=== PATIENT | male | born 1945 | race Caucasian/White ===

== ENCOUNTER 2016-10-13 15:04 | Outpatient (RCR) | payer MEDICARE, OTHER | END 2016-10-13 16:00 | disposition home or self-care (01) | LOC: WOUNDCARE 15:04 | PROVIDERS: ATTEND Surgery | DX: E11.621 Type 2 diabetes mellitus with foot ulcer (principal); E11.42 Type 2 diabetes mellitus with diabetic polyneuropathy; L97.511 Non-pressure chronic ulcer of other part of right foot limited to breakdown of skin; L97.512 Non-pressure chronic ulcer of other part of right foot with fat layer exposed; I70.235 Atherosclerosis of native arteries of right leg with ulceration of other part of foot | CPT/HCPCS: 11042; 97597 ==

== ENCOUNTER → 2016-10-20 | Outpatient (CLI) | payer MEDICARE, OTHER | LOC: WOUNDCARE 15:01 | PROVIDERS: ATTEND Surgery | DX: E11.621 Type 2 diabetes mellitus with foot ulcer (principal); E11.42 Type 2 diabetes mellitus with diabetic polyneuropathy; L97.512 Non-pressure chronic ulcer of other part of right foot with fat layer exposed | CPT/HCPCS: 11042 ==

== ENCOUNTER → 2016-10-31 | Outpatient (CLI) | payer MEDICARE, OTHER | LOC: WOUNDCARE 13:15 | PROVIDERS: ATTEND Surgery | DX: E11.621 Type 2 diabetes mellitus with foot ulcer (principal); L97.512 Non-pressure chronic ulcer of other part of right foot with fat layer exposed; E11.42 Type 2 diabetes mellitus with diabetic polyneuropathy | CPT/HCPCS: 11042; 87070; 87075; 87077; 87186; 87205 ==

== ENCOUNTER → 2016-11-07 | Outpatient (CLI) | payer MEDICARE, OTHER | LOC: WOUNDCARE 13:30 | PROVIDERS: ATTEND Surgery | DX: E11.621 Type 2 diabetes mellitus with foot ulcer (principal); L97.512 Non-pressure chronic ulcer of other part of right foot with fat layer exposed; E11.42 Type 2 diabetes mellitus with diabetic polyneuropathy | CPT/HCPCS: 11042 ==

== ENCOUNTER → 2016-11-12 | Outpatient (CLI) | payer MEDICARE, OTHER | LOC: WOUNDCARE 13:56 | PROVIDERS: ATTEND Surgery | DX: L97.512 Non-pressure chronic ulcer of other part of right foot with fat layer exposed (principal); E11.621 Type 2 diabetes mellitus with foot ulcer; E11.42 Type 2 diabetes mellitus with diabetic polyneuropathy | CPT/HCPCS: 11042 ==

== ENCOUNTER → 2016-11-14 | Outpatient (CLI) | payer MEDICARE, OTHER | LOC: WOUNDCARE 13:31 | PROVIDERS: ATTEND Surgery | DX: E11.621 Type 2 diabetes mellitus with foot ulcer (principal); E11.42 Type 2 diabetes mellitus with diabetic polyneuropathy; L97.512 Non-pressure chronic ulcer of other part of right foot with fat layer exposed | CPT/HCPCS: 29445 ==

== ENCOUNTER → 2016-11-19 | Outpatient (CLI) | payer MEDICARE, OTHER | LOC: WOUNDCARE 09:09 | PROVIDERS: ATTEND Surgery | DX: E11.621 Type 2 diabetes mellitus with foot ulcer (principal); L97.512 Non-pressure chronic ulcer of other part of right foot with fat layer exposed; L97.411 Non-pressure chronic ulcer of right heel and midfoot limited to breakdown of skin; E11.42 Type 2 diabetes mellitus with diabetic polyneuropathy | CPT/HCPCS: 11042; 97597 ==

== ENCOUNTER → 2016-11-26 | Outpatient (CLI) | payer MEDICARE, OTHER | LOC: WOUNDCARE 14:03 | PROVIDERS: ATTEND Surgery | DX: E11.621 Type 2 diabetes mellitus with foot ulcer (principal); E11.42 Type 2 diabetes mellitus with diabetic polyneuropathy; L97.512 Non-pressure chronic ulcer of other part of right foot with fat layer exposed; L97.411 Non-pressure chronic ulcer of right heel and midfoot limited to breakdown of skin | CPT/HCPCS: 11042; 97597 ==

== ENCOUNTER → 2016-12-03 | Outpatient (CLI) | payer MEDICARE, OTHER ==
[2016-12-03 15:24] LABS: BASOPHILS % (AUTO) 0 % (0-10); EOSINOPHILS # (AUTO) 0.2 10^3/uL (0.0-0.3); EOSINOPHILS % (AUTO) 2 % (0-10); LYMPHOCYTES # (AUTO) 2.9 X 10^3 (1.0-4.0); LYMPHOCYTES % (AUTO) 25 % (12-44); MEAN CORPUSCULAR HEMOGLOBIN 29 PG (25-34); MEAN CORPUSCULAR HGB CONC 34 G/DL (32-36); MEAN CORPUSCULAR VOLUME 88 FL (80-99); MEAN PLATELET VOLUME 10.4 FL (7.4-10.4); MONOCYTES % (AUTO) 9 % (0-12); NEUTROPHILS # (AUTO) 7.4 X 10^3 (1.8-7.8); NEUTROPHILS % (AUTO) 64 % (42-75); PLATELET COUNT 217 10^3/uL (130-400); RED BLOOD COUNT 4.42 10^6/uL (4.35-5.85); RED CELL DISTRIBUTION WIDTH 14.7 % (10.0-14.5); WHITE BLOOD COUNT 11.6 10^3/uL (4.3-11.0)
[2016-12-03 15:38] LABS: ALBUMIN 4.3 GM/DL (3.2-4.5); BILIRUBIN,TOTAL 0.5 MG/DL (0.1-1.0); CALCIUM 10.2 MG/DL (8.5-10.1); CREATININE SERUM 1.51 MG/DL (0.60-1.30); POTASSIUM 4.6 MMOL/L (3.6-5.0); TOTAL PROTEIN 7.6 GM/DL (6.4-8.2)
== END ==
LOC: LAB 14:58
PROVIDERS: ATTEND Surgery
DX: L97.411 Non-pressure chronic ulcer of right heel and midfoot limited to breakdown of skin; E11.621 Type 2 diabetes mellitus with foot ulcer; E11.42 Type 2 diabetes mellitus with diabetic polyneuropathy; L97.512 Non-pressure chronic ulcer of other part of right foot with fat layer exposed
CPT/HCPCS: 36415; 80053; 83036; 85025

== ENCOUNTER → 2016-12-03 | Outpatient (CLI) | payer MEDICARE, OTHER | LOC: WOUNDCARE 13:58 | PROVIDERS: ATTEND Surgery | DX: E11.621 Type 2 diabetes mellitus with foot ulcer (principal); L97.512 Non-pressure chronic ulcer of other part of right foot with fat layer exposed; L97.411 Non-pressure chronic ulcer of right heel and midfoot limited to breakdown of skin; E11.42 Type 2 diabetes mellitus with diabetic polyneuropathy | CPT/HCPCS: 11042; 87070; 87075; 87077; 87186; 87205 ==

== ENCOUNTER → 2016-12-10 | Outpatient (CLI) | payer MEDICARE, OTHER | LOC: WOUNDCARE 08:07 | PROVIDERS: ATTEND Surgery | DX: E11.621 Type 2 diabetes mellitus with foot ulcer (principal); L97.512 Non-pressure chronic ulcer of other part of right foot with fat layer exposed; L97.411 Non-pressure chronic ulcer of right heel and midfoot limited to breakdown of skin; E11.42 Type 2 diabetes mellitus with diabetic polyneuropathy | CPT/HCPCS: 11042 ==

== ENCOUNTER → 2016-12-10 | Outpatient (CLI) | payer MEDICARE, OTHER ==
--- NOTE | 2016-12-10 13:08 | Diagnostic Imaging Report ---
EXAMINATION: Three views of the right foot. INDICATION: Nonpressure ulcer. 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 There is no acute bone erosion or periosteal reaction identified to suggest osteomyelitis. No soft tissue air is seen. Degenerative hyperostosis is noted at the intertarsal joints and at the tarsal/metatarsal joint levels with a possible post traumatic component from an old injury. Calcaneal spurs are also seen. No acute fracture or dislocation. IMPRESSION: No acute process. Dictated by: Dictated on workstation # [id number]
== END ==
LOC: RAD 09:41
PROVIDERS: ATTEND Surgery
DX: L97.512 Non-pressure chronic ulcer of other part of right foot with fat layer exposed (principal); E11.621 Type 2 diabetes mellitus with foot ulcer; E11.42 Type 2 diabetes mellitus with diabetic polyneuropathy; L97.411 Non-pressure chronic ulcer of right heel and midfoot limited to breakdown of skin
CPT/HCPCS: 73630

== ENCOUNTER → 2016-12-17 | Outpatient (CLI) | payer MEDICARE, OTHER | LOC: WOUNDCARE 13:57 | PROVIDERS: ATTEND Surgery | DX: E11.621 Type 2 diabetes mellitus with foot ulcer (principal); L97.512 Non-pressure chronic ulcer of other part of right foot with fat layer exposed; E11.42 Type 2 diabetes mellitus with diabetic polyneuropathy | CPT/HCPCS: 11042 ==

== ENCOUNTER → 2016-12-25 | Outpatient (CLI) | payer MEDICARE, OTHER | LOC: WOUNDCARE 15:03 | PROVIDERS: ATTEND Nurse Practitioner | DX: E11.621 Type 2 diabetes mellitus with foot ulcer (principal); E11.42 Type 2 diabetes mellitus with diabetic polyneuropathy; L97.512 Non-pressure chronic ulcer of other part of right foot with fat layer exposed | CPT/HCPCS: 15275 ==

== ENCOUNTER → 2016-12-31 | Outpatient (CLI) | payer MEDICARE, OTHER | LOC: WOUNDCARE 14:07 | PROVIDERS: ATTEND Surgery | DX: E11.621 Type 2 diabetes mellitus with foot ulcer (principal); L97.512 Non-pressure chronic ulcer of other part of right foot with fat layer exposed; E11.42 Type 2 diabetes mellitus with diabetic polyneuropathy | CPT/HCPCS: 15275 ==

== ENCOUNTER → 2017-01-07 | Outpatient (CLI) | payer MEDICARE, OTHER | LOC: WOUNDCARE 10:39 | PROVIDERS: ATTEND Surgery | DX: E11.621 Type 2 diabetes mellitus with foot ulcer (principal); E11.42 Type 2 diabetes mellitus with diabetic polyneuropathy; L97.512 Non-pressure chronic ulcer of other part of right foot with fat layer exposed | CPT/HCPCS: 15275 ==

== ENCOUNTER → 2017-01-14 | Outpatient (CLI) | payer MEDICARE, OTHER | LOC: WOUNDCARE 13:50 | PROVIDERS: ATTEND Surgery | DX: E11.621 Type 2 diabetes mellitus with foot ulcer (principal); L97.512 Non-pressure chronic ulcer of other part of right foot with fat layer exposed; E11.42 Type 2 diabetes mellitus with diabetic polyneuropathy | CPT/HCPCS: 11042 ==

== ENCOUNTER → 2017-01-21 | Outpatient (CLI) | payer MEDICARE, OTHER | LOC: WOUNDCARE 13:42 | PROVIDERS: ATTEND Surgery | DX: E11.621 Type 2 diabetes mellitus with foot ulcer (principal); E11.42 Type 2 diabetes mellitus with diabetic polyneuropathy; L97.512 Non-pressure chronic ulcer of other part of right foot with fat layer exposed | CPT/HCPCS: 11042 ==

== ENCOUNTER → 2017-01-28 | Outpatient (CLI) | payer MEDICARE, OTHER | LOC: WOUNDCARE 13:47 | PROVIDERS: ATTEND Surgery | DX: L97.512 Non-pressure chronic ulcer of other part of right foot with fat layer exposed (principal); E11.621 Type 2 diabetes mellitus with foot ulcer; E11.42 Type 2 diabetes mellitus with diabetic polyneuropathy | CPT/HCPCS: 11042 ==

== ENCOUNTER → 2017-02-04 | Outpatient (CLI) | payer MEDICARE, OTHER | LOC: WOUNDCARE 08:22 | PROVIDERS: ATTEND Surgery | DX: E11.621 Type 2 diabetes mellitus with foot ulcer (principal); L97.512 Non-pressure chronic ulcer of other part of right foot with fat layer exposed; E11.42 Type 2 diabetes mellitus with diabetic polyneuropathy | CPT/HCPCS: 11042; 87070; 87075; 87205 ==

== ENCOUNTER → 2017-02-11 | Outpatient (CLI) | payer MEDICARE, OTHER | LOC: WOUNDCARE 08:22 | PROVIDERS: ATTEND Surgery | DX: E11.621 Type 2 diabetes mellitus with foot ulcer (principal); L97.512 Non-pressure chronic ulcer of other part of right foot with fat layer exposed; E11.42 Type 2 diabetes mellitus with diabetic polyneuropathy | CPT/HCPCS: 11042 ==

== ENCOUNTER → 2017-02-18 | Outpatient (CLI) | payer MEDICARE, OTHER | LOC: WOUNDCARE 08:33 | PROVIDERS: ATTEND Surgery | DX: E11.621 Type 2 diabetes mellitus with foot ulcer (principal); L97.512 Non-pressure chronic ulcer of other part of right foot with fat layer exposed; E11.42 Type 2 diabetes mellitus with diabetic polyneuropathy | CPT/HCPCS: 11042 ==

== ENCOUNTER → 2017-02-25 | Outpatient (CLI) | payer MEDICARE, OTHER | LOC: WOUNDCARE 08:41 | PROVIDERS: ATTEND Surgery | DX: E11.621 Type 2 diabetes mellitus with foot ulcer (principal); L97.512 Non-pressure chronic ulcer of other part of right foot with fat layer exposed; E11.42 Type 2 diabetes mellitus with diabetic polyneuropathy | CPT/HCPCS: 11042 ==

== ENCOUNTER → 2017-03-02 | Outpatient (CLI) | payer MEDICARE, OTHER | LOC: WOUNDCARE 12:46 | PROVIDERS: ATTEND Surgery | DX: E11.621 Type 2 diabetes mellitus with foot ulcer (principal); L97.512 Non-pressure chronic ulcer of other part of right foot with fat layer exposed; L97.511 Non-pressure chronic ulcer of other part of right foot limited to breakdown of skin; E11.42 Type 2 diabetes mellitus with diabetic polyneuropathy | CPT/HCPCS: 11042 ==

== ENCOUNTER → 2017-03-11 | Outpatient (CLI) | payer MEDICARE, OTHER | LOC: WOUNDCARE 08:40 | PROVIDERS: ATTEND Surgery | DX: E11.621 Type 2 diabetes mellitus with foot ulcer (principal); L97.511 Non-pressure chronic ulcer of other part of right foot limited to breakdown of skin; L97.512 Non-pressure chronic ulcer of other part of right foot with fat layer exposed; E11.42 Type 2 diabetes mellitus with diabetic polyneuropathy | CPT/HCPCS: 11042; 97597 ==

== ENCOUNTER → 2017-03-18 | Outpatient (CLI) | payer MEDICARE, OTHER | LOC: WOUNDCARE 08:18 | PROVIDERS: ATTEND Surgery | DX: E11.621 Type 2 diabetes mellitus with foot ulcer (principal); L97.511 Non-pressure chronic ulcer of other part of right foot limited to breakdown of skin; L97.512 Non-pressure chronic ulcer of other part of right foot with fat layer exposed; E11.42 Type 2 diabetes mellitus with diabetic polyneuropathy | CPT/HCPCS: 11042 ==

== ENCOUNTER → 2017-03-20 | Outpatient (CLI) | payer MEDICARE, OTHER | LOC: WOUNDCARE 12:03 | PROVIDERS: ATTEND Surgery | DX: E11.621 Type 2 diabetes mellitus with foot ulcer (principal); L97.511 Non-pressure chronic ulcer of other part of right foot limited to breakdown of skin; L97.512 Non-pressure chronic ulcer of other part of right foot with fat layer exposed; E11.42 Type 2 diabetes mellitus with diabetic polyneuropathy | CPT/HCPCS: 29445 ==

== ENCOUNTER → 2017-03-25 | Outpatient (CLI) | payer MEDICARE, OTHER | LOC: WOUNDCARE 08:08 | PROVIDERS: ATTEND Surgery | DX: E11.621 Type 2 diabetes mellitus with foot ulcer (principal); L97.512 Non-pressure chronic ulcer of other part of right foot with fat layer exposed; E11.42 Type 2 diabetes mellitus with diabetic polyneuropathy | CPT/HCPCS: 29445 ==

== ENCOUNTER → 2017-03-30 | Outpatient (CLI) | payer MEDICARE, OTHER | LOC: WOUNDCARE 08:32 | PROVIDERS: ATTEND Surgery | DX: E11.621 Type 2 diabetes mellitus with foot ulcer (principal); L97.512 Non-pressure chronic ulcer of other part of right foot with fat layer exposed | CPT/HCPCS: 99212 ==

== ENCOUNTER → 2017-04-13 | Outpatient (CLI) | payer MEDICARE, OTHER | LOC: WOUNDCARE 13:24 | PROVIDERS: ATTEND Surgery | DX: E11.621 Type 2 diabetes mellitus with foot ulcer (principal); L97.512 Non-pressure chronic ulcer of other part of right foot with fat layer exposed; E11.42 Type 2 diabetes mellitus with diabetic polyneuropathy | CPT/HCPCS: 11042 ==

== ENCOUNTER → 2017-04-20 | Outpatient (CLI) | payer MEDICARE, OTHER | LOC: WOUNDCARE 12:28 | PROVIDERS: ATTEND Surgery | DX: E11.621 Type 2 diabetes mellitus with foot ulcer (principal); L97.512 Non-pressure chronic ulcer of other part of right foot with fat layer exposed; E11.42 Type 2 diabetes mellitus with diabetic polyneuropathy | CPT/HCPCS: 99212 ==

== ENCOUNTER → 2017-04-30 | Outpatient (CLI) | payer MEDICARE, OTHER ==
--- NOTE | 2017-04-30 12:21 | Diagnostic Imaging Report ---
INDICATION: Shortness of breath. COMPARISON: None. FINDINGS: Two views of the chest are obtained. Heart size is normal. The pulmonary vessels appear unremarkable. There is a pacer device in the left chest. There is no pneumothorax, mediastinal widening, or pleural fluid. Lungs are clear. There are degenerative changes in the spine. IMPRESSION: No acute abnormality is demonstrated. Dictated by: Dictated on workstation # [id number]
== END ==
LOC: RAD 11:57
PROVIDERS: ATTEND Internal Medicine Critical Care Medicine
DX: J44.9 Chronic obstructive pulmonary disease, unspecified (principal); G47.33 Obstructive sleep apnea (adult) (pediatric); J30.2 Other seasonal allergic rhinitis; I25.10 Atherosclerotic heart disease of native coronary artery without angina pectoris
CPT/HCPCS: 71046

== ENCOUNTER → 2017-05-06 | Outpatient (CLI) | payer MEDICARE, OTHER ==
[~2017-05-06] MED LIST: RT-ALBUTEROL SULF 2.5 MG/3 ML PRE-MIX VIAL INH ONE
== END ==
LOC: RT 16:39
PROVIDERS: ATTEND Internal Medicine Critical Care Medicine
DX: J44.9 Chronic obstructive pulmonary disease, unspecified (principal)
CPT/HCPCS: 94060; 94726; 94729

== ENCOUNTER 2017-05-11 21:08 | Outpatient (CLI) | payer MEDICARE, OTHER | END 2017-05-12 06:20 | disposition home or self-care (01) | LOC: SLEEP 21:08 | PROVIDERS: ATTEND Internal Medicine Critical Care Medicine | DX: G47.33 Obstructive sleep apnea (adult) (pediatric) (principal); R06.02 Shortness of breath; J30.2 Other seasonal allergic rhinitis; J44.9 Chronic obstructive pulmonary disease, unspecified; I25.10 Atherosclerotic heart disease of native coronary artery without angina pectoris | CPT/HCPCS: 95811 ==

== ENCOUNTER → 2017-05-15 | Outpatient (CLI) | payer MEDICARE, OTHER | LOC: WOUNDCARE 08:37 | PROVIDERS: ATTEND Surgery | DX: E11.621 Type 2 diabetes mellitus with foot ulcer (principal); L97.512 Non-pressure chronic ulcer of other part of right foot with fat layer exposed; E11.42 Type 2 diabetes mellitus with diabetic polyneuropathy | CPT/HCPCS: 87070; 87075; 87186; 87205 ==

== ENCOUNTER → 2017-05-18 | Outpatient (CLI) | payer MEDICARE, OTHER | LOC: WOUNDCARE 11:31 | PROVIDERS: ATTEND Surgery | DX: E11.621 Type 2 diabetes mellitus with foot ulcer (principal); L97.512 Non-pressure chronic ulcer of other part of right foot with fat layer exposed; E11.42 Type 2 diabetes mellitus with diabetic polyneuropathy | CPT/HCPCS: 29445 ==

== ENCOUNTER → 2017-05-20 | Outpatient (CLI) | payer MEDICARE, OTHER | LOC: WOUNDCARE 13:37 | PROVIDERS: ATTEND Surgery | DX: L97.512 Non-pressure chronic ulcer of other part of right foot with fat layer exposed (principal); E11.621 Type 2 diabetes mellitus with foot ulcer; E11.42 Type 2 diabetes mellitus with diabetic polyneuropathy | CPT/HCPCS: 29445 ==

== ENCOUNTER → 2017-05-27 | Outpatient (CLI) | payer MEDICARE, OTHER | LOC: WOUNDCARE 12:56 | PROVIDERS: ATTEND Surgery | DX: E11.621 Type 2 diabetes mellitus with foot ulcer (principal); L97.512 Non-pressure chronic ulcer of other part of right foot with fat layer exposed; E11.42 Type 2 diabetes mellitus with diabetic polyneuropathy | CPT/HCPCS: 29445 ==

== ENCOUNTER → 2017-06-03 | Outpatient (CLI) | payer MEDICARE, OTHER | LOC: WOUNDCARE 11:39 | PROVIDERS: ATTEND Surgery | DX: E11.621 Type 2 diabetes mellitus with foot ulcer (principal); L97.512 Non-pressure chronic ulcer of other part of right foot with fat layer exposed; E11.42 Type 2 diabetes mellitus with diabetic polyneuropathy | CPT/HCPCS: 99212 ==

== ENCOUNTER 2018-04-07 20:56 | Outpatient (CLI) | payer MEDICARE, OTHER | END 2018-04-08 06:40 | disposition home or self-care (01) | LOC: SLEEP 20:56 | PROVIDERS: ATTEND Nurse Practitioner Family | DX: G47.33 Obstructive sleep apnea (adult) (pediatric) (principal); R53.83 Other fatigue; Z78.9 Other specified health status | CPT/HCPCS: 95810 ==

== ENCOUNTER → 2018-11-17 | Outpatient (CLI) | payer MEDICARE, OTHER ==
[2018-11-17 15:20] LABS: CREATININE SERUM 1.25 MG/DL (0.60-1.30)
--- NOTE | 2018-11-17 16:50 | Diagnostic Imaging Report ---
PROCEDURE: CT chest with contrast only. TECHNIQUE: Multiple contiguous axial images were obtained through the chest after administration of intravenous contrast. Auto Exposure Controls were utilized during the CT exam to meet ALARA standards for radiation dose reduction. INDICATION: COPD COMPARISON: Radiographs dated April 30, 2017. FINDINGS: Pacer device is present with the battery pack overlying the left chest. An enlarged right paratracheal lymph node is present measuring 1.8 x 1.5 cm. No additional adenopathy within the chest. Scattered vascular calcifications. No aneurysmal dilatation of the thoracic aorta. The heart is within normal limits in size. No pericardial effusion. No pleural effusion. Tiny hiatal hernia. No pneumothorax. Mild patchy reticular and groundglass opacities are identified within the anterior aspect of the left upper lobe, posterior aspect of the right lower lobe, and inferior aspect of the right middle lobe. The airway is patent. Cholecystectomy. Evidence of prior surgery associated with the anterior abdominal wall with multiple surgical clips in place. Aortic stent graft is noted within the partially visualized abdominal aorta. The visualized upper abdomen is otherwise unremarkable. Scattered osseous degenerative changes without acute osseous abnormality. IMPRESSION: Patchy reticular and groundglass opacities within the lungs bilaterally, greatest within the anterior left upper lobe. Findings are favored to be related to pneumonitis. Early interstitial lung disease would appear similar. Enlarged right paratracheal lymph node, of uncertain etiology. Recommend comparison to prior imaging if available. Though this may be reactive, infiltrative process not excluded. Additional postsurgical and chronic findings as described above. Dictated by: Dictated on workstation # [id number]
== END ==
LOC: RT 14:49
PROVIDERS: ATTEND Nurse Practitioner Family
DX: I70.8 Atherosclerosis of other arteries (principal); J84.9 Interstitial pulmonary disease, unspecified; R59.0 Localized enlarged lymph nodes; Z90.49 Acquired absence of other specified parts of digestive tract; Z95.0 Presence of cardiac pacemaker; J44.9 Chronic obstructive pulmonary disease, unspecified; G47.33 Obstructive sleep apnea (adult) (pediatric); J30.9 Allergic rhinitis, unspecified
CPT/HCPCS: 36415; 71260; 82565; 84520; 94060; 94726; 94729

== ENCOUNTER 2018-11-22 06:01 | Outpatient (CLI) | payer MEDICARE, OTHER ==
[~2018-11-22] VITALS: Ht 185.4 cm; Wt 92.1 kg
[2018-11-22] MEDS ORDERED: OMEG1CAP PO (11:59)
[2018-11-22] MEDS ORDERED: CLOP75TA69 PO (12:49)
[2018-11-22] MEDS ORDERED: LOSA25TA41 PO (12:49)
[2018-11-22] MEDS ORDERED: CARV6.25 PO (12:49)
[2018-11-22] MEDS ORDERED: MAGN400T7 PO (12:49)
[2018-11-22] MEDS ORDERED: FURO20TA4 PO (12:49)
[2018-11-22] MEDS ORDERED: DULO30CA3 PO (12:49)
[2018-11-22] MEDS ORDERED: METF-397 PO (12:49)
[2018-11-22] MEDS ORDERED: GLIM4TAB PO (12:49)
[2018-11-22] MEDS ORDERED: DEXL30CA2 PO (12:49)
[2018-11-22] MEDS ORDERED: ASPI-586 PO (12:49)
[2018-11-22] MEDS ORDERED: FINA5TAB6 PO (12:49)
[2018-11-22] MEDS ORDERED: DULA1.5P2 SQ (12:49)
[2018-11-22] MEDS ORDERED: AMOX-358 PO (12:49)
[2018-11-24] MEDS ORDERED: CETI10TA20 PO (08:24)
== END 2018-11-22 12:50 | disposition home or self-care (01) ==
LOC: PREOP 06:01
PROVIDERS: ATTEND Internal Medicine Critical Care Medicine
DX: Z01.818 Encounter for other preprocedural examination (principal)

== ENCOUNTER 2018-12-22 10:38 | Outpatient (RCR) | payer MEDICARE, OTHER ==
[~2018-12-22 10:38] MED LIST changes: +AMOX-358 PO; +ASPI-586 PO; +CARV6.25 PO; +CETI10TA20 PO; +CLOP75TA69 PO; +DEXL30CA2 PO; +DULA1.5P2 SQ; +DULO30CA3 PO; +FINA5TAB6 PO; +FURO20TA4 PO; +GLIM4TAB PO; +LOSA25TA41 PO; +MAGN400T7 PO; +METF-397 PO; +OMEG1CAP PO; -RT-ALBUTEROL SULF 2.5 MG/3 ML PRE-MIX VIAL INH ONE
== END 2019-03-22 | disposition home or self-care (01) ==
LOC: PULM 10:38
PROVIDERS: ATTEND Nurse Practitioner Family
DX: J98.4 Other disorders of lung (principal)
CPT/HCPCS: 99211

== ENCOUNTER → 2019-01-04 | Outpatient (CLI) | payer MEDICARE, OTHER ==
[~2019-01-04] MED LIST changes: +CATHETER FLUSH 10 ML SYR IV PRN; +HOLD METFORMIN - RECEIVED CONTRAST 20 ML VIAL IV SCH; +IOHEXOL 350 MG/ML 100 ML (OMNIPAQUE 350) VIAL IV ONE; +NS 100 ML (IVPB) BAG IV ONE
[2019-01-04 14:02] LABS: CREATININE SERUM 1.33 MG/DL (0.60-1.30)
--- NOTE | 2019-01-04 16:10 | Diagnostic Imaging Report ---
PROCEDURE: CT chest with contrast only. TECHNIQUE: Multiple contiguous axial images were obtained through the chest after administration of intravenous contrast. Auto Exposure Controls were utilized during the CT exam to meet ALARA standards for radiation dose reduction. INDICATION: Hemoptysis and fatigue. COMPARISON: Correlation is made with prior CT chest from 11/17/2018. FINDINGS: Left chest wall cardiac pacemaker is again noted. No axillary lymphadenopathy is seen. A prominent lymph node in the right paratracheal region persists measuring approximately 2.7 x 1.6 cm. This measured approximately 2.0 x 1.3 cm on prior exam when measured by the same technique. Additional slightly smaller lymph nodes in the mediastinum are noted. Jeanine are unremarkable. There are coronary arterial calcifications. No pericardial fluid is seen. Patient has developed small bilateral pleural effusions. Patchy groundglass and interstitial changes in bilateral upper lobes are again noted and appear to be slightly more prominent on today's exam. Lower lung vasquez are unremarkable. No discrete mass is detected. Upper abdomen does show abdominal aortic aneurysm, treated with a stent graft. IMPRESSION: Slight worsening of patchy bilateral groundglass and interstitial infiltrates when compared with study one month earlier. In addition, previously noted enlarged lymph nodes in the right paratracheal region show some increase in size and again may be reactive. Continued follow-up is recommended. Patient has developed small bilateral pleural effusions. Dictated by: Dictated on workstation # [id number]
== END ==
LOC: RAD 13:23
PROVIDERS: ATTEND Nurse Practitioner Family
DX: J44.9 Chronic obstructive pulmonary disease, unspecified (principal); J90 Pleural effusion, not elsewhere classified; R59.0 Localized enlarged lymph nodes; Z95.0 Presence of cardiac pacemaker
CPT/HCPCS: 36415; 71260; 82565; 84520

== ENCOUNTER → 2019-03-22 | Outpatient (CLI) | payer MEDICARE, OTHER ==
[~2019-03-22] MED LIST changes: -CATHETER FLUSH 10 ML SYR IV PRN; -HOLD METFORMIN - RECEIVED CONTRAST 20 ML VIAL IV SCH; -IOHEXOL 350 MG/ML 100 ML (OMNIPAQUE 350) VIAL IV ONE; -NS 100 ML (IVPB) BAG IV ONE
[2019-03-22 15:47] LABS: BASOPHILS % (AUTO) 0 % (0-10); EOSINOPHILS # (AUTO) 0.1 10^3/uL (0.0-0.3); EOSINOPHILS % (AUTO) 1 % (0-10); HEMATOCRIT 36 % (40-54); HEMOGLOBIN 11.9 G/DL (13.3-17.7); LYMPHOCYTES # (AUTO) 1.5 X 10^3 (1.0-4.0); LYMPHOCYTES % (AUTO) 15 % (12-44); MEAN CORPUSCULAR HEMOGLOBIN 27 PG (25-34); MEAN CORPUSCULAR HGB CONC 33 G/DL (32-36); MEAN CORPUSCULAR VOLUME 83 FL (80-99); MEAN PLATELET VOLUME 10.5 FL (7.4-10.4); MONOCYTES # (AUTO) 1.5 X 10^3 (0.0-1.0); MONOCYTES % (AUTO) 15 % (0-12); NEUTROPHILS % (AUTO) 69 % (42-75); PLATELET COUNT 251 10^3/uL (130-400); RED CELL DISTRIBUTION WIDTH 16.9 % (10.0-14.5); WHITE BLOOD COUNT 10.2 10^3/uL (4.3-11.0)
--- NOTE | 2019-03-22 15:53 | Diagnostic Imaging Report ---
INDICATION: Cough and shortness of breath for one week. TIME OF EXAM: 3:35 p.m. COMPARISON: Correlation is made with prior chest from 11/24/2018. FINDINGS: Heart size is stable. Cardiac defibrillator remains in place. No infiltrates are detected. There is no effusion or pneumothorax. IMPRESSION: No acute cardiopulmonary process is detected. Dictated by: Dictated on workstation # [id number]
[2019-03-22 16:15] LABS: CALCIUM 10.5 MG/DL (8.5-10.1); CREATININE SERUM 1.29 MG/DL (0.60-1.30); POTASSIUM 4.7 MMOL/L (3.6-5.0)
== END ==
LOC: RAD 14:35
PROVIDERS: ATTEND Internal Medicine Critical Care Medicine
DX: J44.9 Chronic obstructive pulmonary disease, unspecified (principal); G47.33 Obstructive sleep apnea (adult) (pediatric); R91.8 Other nonspecific abnormal finding of lung field; Z87.891 Personal history of nicotine dependence
CPT/HCPCS: 36415; 71046; 80048; 83880; 85025

== ENCOUNTER → 2019-08-01 | Outpatient (CLI) | payer MEDICARE, OTHER ==
[~2019-08-01] MED LIST changes: +CATHETER FLUSH 10 ML SYR IV PRN; -CETI10TA20 PO; +CETI10TA21 PO; -GLIM4TAB PO; +GLIM4TAB5 PO; +HOLD METFORMIN - RECEIVED CONTRAST 20 ML VIAL IV SCH; +IOHEXOL 350 MG/ML 100 ML (OMNIPAQUE 350) VIAL IV ONE; +NS 100 ML (IVPB) BAG IV ONE
--- NOTE | 2019-08-01 17:26 | Diagnostic Imaging Report ---
CT CHEST W TECHNIQUE: Multiple contiguous axial images were obtained through the chest with the use of intravenous contrast. All CT scans use one or more of the following dose optimizing techniques: automated exposure control, MA and/or KvP adjustment based on a patient size and exam type, or iterative reconstruction. INDICATION: Follow-up ground glass pulmonary opacities. COPD. COMPARISON: CT chest of 01/04/2019 FINDINGS: Lungs and airway: No endoluminal nodule within the trachea. The previously noted groundglass opacities within the bilateral upper lobes and right lower lobe have resolved. No new pulmonary mass, nodule or consolidation. Pleura: Bilateral pleural effusions have resolved. No pneumothorax. Heart and mediastinum: No supraclavicular or axillary lymphadenopathy. Improving but persistent mildly enlarged mediastinal lymph nodes. No hilar lymphadenopathy. No juxtaphrenic lymphadenopathy. Small sliding-type hiatal hernia is unchanged. Stable cardiomegaly without pericardial effusion. No central pulmonary emboli. Normal caliber thoracic aorta. Upper abdomen: No acute abnormality upper abdomen. Cholecystectomy. Partially imaged endovascular stent graft in the aorta. Musculoskeletal: No concerning focal osseous lesions. IMPRESSION: 1. Resolution of pulmonary opacities which are likely due to an infectious process. 2. Small bilateral pleural effusions have also resolved. 3. Improving but persistent mediastinal lymphadenopathy that is likely reactive in nature. Dictated by: Dictated on workstation # [id number]
== END ==
LOC: RAD 16:28
PROVIDERS: ATTEND Nurse Practitioner Family
DX: J44.9 Chronic obstructive pulmonary disease, unspecified (principal); I42.9 Cardiomyopathy, unspecified; R91.8 Other nonspecific abnormal finding of lung field; R59.0 Localized enlarged lymph nodes; Z87.891 Personal history of nicotine dependence
CPT/HCPCS: 71260

== ENCOUNTER → 2020-09-11 | Outpatient (CLI) | payer MEDICARE, OTHER ==
[~2020-09-11] MED LIST changes: -CATHETER FLUSH 10 ML SYR IV PRN; -CETI10TA21 PO; +CETI10TA49 PO; -HOLD METFORMIN - RECEIVED CONTRAST 20 ML VIAL IV SCH; -IOHEXOL 350 MG/ML 100 ML (OMNIPAQUE 350) VIAL IV ONE; +NF-LOVAZAC PO; -NS 100 ML (IVPB) BAG IV ONE; -OMEG1CAP PO
--- NOTE | 2020-09-11 16:36 | Diagnostic Imaging Report ---
EXAMINATION: CT chest without contrast (lung screening). TECHNIQUE: Multiple contiguous axial images were obtained through the chest without the use of intravenous contrast according to lung cancer screening protocol. All CT scans use one or more of the following dose optimizing techniques: automated exposure control, MA and/or KvP adjustment based on patient size and exam type or iterative reconstruction. HISTORY: 75 pack year history of smoking. COMPARISON: 08/01/2019 FINDINGS: There is no edema or pneumonia. No pleural effusion. No pneumothorax. No suspicious nodules. There is no axillary or supraclavicular lymphadenopathy. There is no mediastinal lymphadenopathy. Pacemaker is present. Heart size is normal. There are moderate coronary artery calcifications. No pericardial effusion. Aorta is normal in caliber. Limited views of the upper abdomen show changes of cholecystectomy. There are no suspicious osseous lesions. IMPRESSION: 1. No suspicious pulmonary nodules. LUNG-RADS CATEGORY: 1 MODIFIER: None. Dictated by: Dictated on workstation # [id number]
== END ==
LOC: RAD 13:31
PROVIDERS: ATTEND Nurse Practitioner Family
DX: Z12.2 Encounter for screening for malignant neoplasm of respiratory organs (principal); Z87.891 Personal history of nicotine dependence
CPT/HCPCS: 71271